=== PATIENT | female | born 1960 | race Caucasian/White ===

== ENCOUNTER 2018-07-04 13:28 | Outpatient (CLI) | payer MEDICARE, MEDICAID | END 2018-07-04 13:29 | disposition home or self-care (01) | LOC: BICMAMMO 13:28 | PROVIDERS: ATTEND Internal Medicine Hematology & Oncology | DX: Z12.31 Encounter for screening mammogram for malignant neoplasm of breast (principal); R92.1 Mammographic calcification found on diagnostic imaging of breast; D35.00 Benign neoplasm of unspecified adrenal gland; D68.59 Other primary thrombophilia; R04.2 Hemoptysis; Z85.3 Personal history of malignant neoplasm of breast | CPT/HCPCS: 77063; 77067 ==